=== PATIENT | male | born 1985 | race Caucasian/White ===

== ENCOUNTER 2019-06-08 09:46 | Emergency (ER) | payer MEDICAID ==
[~2019-06-08] VITALS: Ht 177.8 cm; Wt 95.5 kg
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
--- NOTE | 2019-06-08 10:13 | NUR ---
Received report from LAN Farrar. All questions answered. Assuming care of pt at this time. [place] at this time.
--- NOTE | 2019-06-08 10:31 | NUR ---
Pt back to room from CT. NADN. No needs expressed.
--- NOTE | 2019-06-08 10:58 | NUR ---
Pt easily arousable to voice and light touch. Pt resting on gurney connected to NIBP cuff and continous pulse ox monitor. Bedrails up x 2. PT resting with eyes closed. Pt has unlabored respirations with even chest rise and fall. NADN. No needs expressed.
[2019-06-08 11:19] LABS: BASOPHILS # (AUTO) 0.07 x10^3/uL (0-0.1); BASOPHILS % (AUTO) 1 % (0-1); EOSINOPHILS # (AUTO) 0.49 x10^3/uL (0-0.4); EOSINOPHILS % (AUTO) 7 % (1-7); LYMPHOCYTES # (AUTO) 1.31 x10^3/uL (1-3.4); LYMPHOCYTES % (AUTO) 19 % (22-44); MD NO; MEAN CORPUSCULAR HEMOGLOBIN 31.8 pg (27.5-34.5); MEAN CORPUSCULAR VOLUME 93.3 fL (81-97); MEAN PLATELET VOLUME 7.3 fL (7.4-10.4); MONOCYTES # (AUTO) 0.55 x10^3/uL (0.2-0.8); MONOCYTES % (AUTO) 8 % (2-9); NEUTROPHILS # (AUTO) 4.37 x10^3/uL (1.8-6.8); NEUTROPHILS % (AUTO) 65 % (42-75); PLATELET COUNT 311 x10^3/uL (130-400); RED BLOOD COUNT 4.98 x10^6/uL (4.38-5.82); RED CELL DISTRIBUTION WIDTH 11.6 % (9.4-14.8)
[2019-06-08 11:31] LABS: ANION GAP 9 mmol/L (5-15); CALCIUM 8.7 mg/dL (8.5-10.1); CHLORIDE 105 mmol/L (98-107); CREATININE 0.78 mg/dL (0.7-1.3)
[2019-06-08] MEDS ORDERED: DIPH,PERTUSS(ACELL),TET VAC/PF 0.5 ML IM-VACC ONE ×2 (11:59→12:00)
[2019-06-08 12:20] LABS: ALBUMIN 3.5 g/dL (3.4-5.0); BILIRUBIN, DIRECT 0.1 mg/dL (0.1-0.2)
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
[2019-06-08 12:22] LABS: BILIRUBIN,INDIRECT 0.3 mg/dL (0.0-2.0); BILIRUBIN,TOTAL 0.4 mg/dL (0.2-1.0); TOTAL PROTEIN 7.4 g/dL (6.4-8.2)
[2019-06-08] MEDS ORDERED: NALOXONE 0.4 MG/ML, 1ML IVPush ONE (12:30)
[2019-06-08] MEDS ORDERED: NALOXONE 0.4 MG/ML, 1ML ONE (12:37)
--- NOTE | 2019-06-08 12:50 | NUR ---
PT GIVEN NARCAN PER DR. LAW TO NO EFFECT. PT ADMITTED TO USING HEROIN AND METH RECENTLY. NO NEED FOR BRANDON PER DR. LAW.
--- NOTE | 2019-06-08 12:59 | NUR ---
LATE NOTE ENTRY DUE TO PT CARE. At time of PIV establishment pt states, "Oh that hurts." Pt educated on need of UA and straight cath if pt is unable to provide. Pt states, "I don't want that." EDMD notified on pt condition and on pt refusal of straight cath. EDMD aware.
--- NOTE | 2019-06-08 13:36 | NUR ---
Pt resting with eyes closed with unlabored respirations with even chest rise and fall. NADN. No needs expressed at this time. Pt easily arousable to painful stimuli at this time.
[2019-06-08 14:44] VITALS: BP 100/56
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
--- NOTE | 2019-06-08 14:55 | NUR ---
sample color maker assisted primary RN to waking pt up. Pt up and dressed self. PIV removed. D/C paperwork provided and bus pass. Patient given discharge instructions and they have confirmed that they understand the instructions. Patient ambulatory with steady gait. Pt left with all personal belongings.
== END 2019-06-08 15:01 | disposition home or self-care (01) ==
LOC: ED 14:50
DX: S09.8XXA Other specified injuries of head, initial encounter (principal); G92 Toxic encephalopathy; F11.10 Opioid abuse, uncomplicated; F15.10 Other stimulant abuse, uncomplicated; M54.2 Cervicalgia; Y08.89XA Assault by other specified means, initial encounter; Y93.89 Activity, other specified; Y92.413 State road as the place of occurrence of the external cause; Y99.8 Other external cause status
CPT/HCPCS: 36415; 70450; 72125; 80048; 80076; 80307; 82140; 85025; 90471; 90715; 96374; 99284; J2310